=== PATIENT | female | born 1995 | race Caucasian/White ===

== ENCOUNTER → 2017-12-06 | Outpatient (CLI) | payer BC, OTHER ==
--- NOTE | 2017-12-06 18:15 | XR ---
Cervical spine HISTORY: G 56.82 5 views of the cervical spine Comparison to prior exam 03/17/2016 There is no significant interval change. Oblique views are not optimal to evaluate foramina on the le ft. Cervical vertebral bodies show preserved height and bone mineralization. Retrolisthesis grade 1 C 2-3, C3-4, C4-5. Prevertebral soft tissues are normal. There is facet arthropathy change. IMPRESSION: Essentially stable exam. Cervical MRI may be of benefit.
== END | disposition home or self-care (01) ==
LOC: RADXRMAIN 15:27
DX: G56.82 Other specified mononeuropathies of left upper limb (principal)
CPT/HCPCS: 72050

== ENCOUNTER 2023-09-18 17:06 | Emergency (ER) | payer BC, OTHER ==
[2023-09-18 17:29] VITALS: BP 117/64; PULSE 75; RESP 20; TEMP 98.1
[2023-09-18] MEDS ORDERED: LIDOCAINE 1% INJ 10MG/ML (20 ML MDV) SQ ONE (17:29)
--- NOTE | 2023-09-18 17:44 | ED ---
General Adult HPI - General Chief complaint: Wound/Laceration Stated complaint: laceration to right ring finger Time Seen by Provider: 09/18/23 17:10 Source: patient, RN notes reviewed Mode of arrival: ambulatory Limitations: no limitations - History of Present Illness Initial comments: 28-year-old female with no significant past medical history presents the emergency department the chief complaint of laceration. 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 She reports laceration and pain. She is up-to-date on her tetanus vaccine. Denies numbness, tingling or weakness in the extremity. Did not take anything prior to arrival. - Related Data Previous Rx's Medication Instructions Recorded Ibuprofen [Motrin] 600 mg PO Q6HR PRN #20 tab 03/17/16 diazePAM [Valium] 5 mg PO TID PRN #9 tab 03/17/16 Allergies Allergy/AdvReac Type Severity Reaction Status Date / Time cefuroxime axetil Allergy Unknown Verified 09/18/23 17:09 [From Ceftin] fluticasone propionate Allergy Unknown Verified 09/18/23 17:09 [From Advair Diskus] salmeterol xinafoate Allergy Unknown Verified 09/18/23 17:09 [From Advair Diskus] mold Allergy Unknown Uncoded 09/18/23 17:09 Review of Systems ROS Statement: Those systems with pertinent positive or pertinent negative responses have been documented in the HPI. ROS Other: All systems not noted in ROS Statement are negative. Past Medical History Past Medical History: Asthma History of Any Multi-Drug Resistant Organisms: None Reported Past Surgical History: Adenoidectomy, Ear Surgery Past Psychological History: Anxiety Smoking Status: Never smoker Past Alcohol Use History: None Reported Past Drug Use History: None Reported General Exam - General Exam Comments Initial Comments: General: Alert, in no acute distress Head: atraumatic normocephalic. Eyes PERRL, EOMI intact, mucous membranes moist Respiratory: Lungs clear to auscultation bilaterally Cardiovascular: Rate regular rate nd rhthm Abdominal: Soft without guarding or rebound Extremities: Normal inspection with full range of motion and normal capillary refill, right second digit with superficial laceration without active bleeding. Full range of motion. No Crepitus Neuroogic: alert and oriented 3, CN II-XII intact, able to ambulate with steady gait Skin: warm dry and intact with normal color Limitations: no limitations Course Vital Signs 09/18/23 17:06 Temperature 98.1 F Pulse Rate 75 Respiratory 20 Rate Blood Pressure 117/64 O2 Sat by Pulse 97 Oximetry Medical Decision Making - Medical Decision Making Was pt. sent in by a medical professional or institution (CARMINA Jenkins, [employer], urgent care, hospital, or [facility]...) When possible be specific @ -[No] Did you speak to anyone other than the patient for history (EMS, parent, family, police, friend...)? What history was obtained from this source @ -[No] Did you review nursing and triage notes (agree or disagree)? Why? @ -[I reviewed and agree with nursing and triage notes] Were old charts reviewed (outside hosp., previous admission, EMS record, old EKG, old radiological studies, urgent care reports/EKG's, [facility] records)? Report findings @ -[No old charts were reviewed] Differential Diagnosis (chest pain, altered mental status, abdominal pain women, abdominal pain men, vaginal bleeding, weakness, fever, dyspnea, syncope, headache, dizziness, GI bleed, back pain, seizure, CVA, palpatations, mental health, musculoskeletal)? @ -[not applicable] EKG interpreted by me (3pts min.). @ -[As above] X-rays interpreted by me (1pt min.). @ -[None done] CT interpreted by me (1pt min.). @ -[None done] U/S interpreted by me (1pt. min.). @ -[None done] What testing was considered but not performed or refused? (CT, X-rays, U/S, labs)? Why? @ -[None] What meds were considered but not given or refused? Why? @ -[None] Did you discuss the management of the patient with other professionals (professionals i.e. CARMINA Jenkins, [employer] SUPERVISOR, lab, RT, psych nurse, criminal justice social worker, hunting guide, teacher, unemployment insurance hearing officer, assistant case manager)? Give summary @ -[No] Was smoking cessation discussed for >3mins.? @ -[No] Was critical care preformed (if so, how long)? @ -[No] Were there social determinants of health that impacted care today? How? (Homelessness, low income, unemployed, alcoholism, drug addiction, transportation, low edu. Level, literacy, decrease access to med. care, group home, rehab)? @ -[No] Was there de-escalation of care discussed even if they declined (Discuss DNR or withdrawal of care, Hospice)? DNR status @ -[No] What co-morbidities impacted this encounter? (DM, HTN, Smoking, COPD, CAD, Cancer, CVA, ARF, Chemo, Hep., AIDS, mental health diagnosis, sleep apnea, morbid obesity)? @ -[None] Was patient admitted / discharged? Hospital course, mention meds given and route, prescriptions, significant lab abnormalities, going to OR and other pertinent info. @ -Charts. This is a pleasant 28-year-old female presents emergency Department with laceration. Patient has a small superficial laceration to left index finger without active bleeding, wrist, obvious deformity patient provided new Band-Aids. She was offered bacitracin DECLINED. Return parameters discussed. She was not provided tetanus that she reports she is up-to-date Case discussed with Dr. Celaya ED attending who agrees with plan Undiagnosed new problem with uncertain prognosis? @ -[No] Drug Therapy requiring intensive monitoring for toxicity (Heparin, Nitro, Insulin, Cardizem)? @ -[No] Were any procedures done? @ -[No] Diagnosis/symptom? @ -Finger Laceration Acute, or Chronic, or Acute on Chronic? @ -Acute Uncomplicated (without systemic symptoms) or Complicated (systemic symptoms)? @ -Uncomplicated Side effects of treatment? @ -[No] Exacerbation, Progression, or Severe Exacerbation? @ -[No] Poses a threat to life or bodily function? How? (Chest pain, [place], [place], pneumonia, PE, COPD, DKA, ARF, appy, cholecystitis, CVA, Diverticulitis, Homicidal, Suicidal, threat to staff... and all critical care pts) @ -Low likelihood Disposition Clinical Impression: Laceration Disposition: HOME SELF-CARE Condition: Stable Instructions (If sedation given, give patient instructions): Finger Laceration (ED) Additional Instructions: Please keep the area clean and dry change band aid often Return sitting pain or symptoms Is patient prescribed a controlled substance at d/c from ED?: No Referrals: Jackie Olivo NPC [Primary Care Provider] - 1-2 days Time of Disposition: 17:44
== END 2023-09-18 17:49 | disposition home or self-care (01) ==
LOC: EC 17:06
DX: S61.214A Laceration without foreign body of right ring finger without damage to nail, initial encounter (principal); J45.909 Unspecified asthma, uncomplicated; Z86.59 Personal history of other mental and behavioral disorders; Z88.1 Allergy status to other antibiotic agents; Z88.8 Allergy status to other drugs, medicaments and biological substances; W23.1XXA Caught, crushed, jammed, or pinched between stationary objects, initial encounter
CPT/HCPCS: 99282; J2001